=== PATIENT | male | born 1960 | race Two or more races ===

== ENCOUNTER 2021-06-24 13:53 | Outpatient (CLI) | payer OTHER | END 2021-06-24 23:59 | disposition home or self-care (01) | LOC: LAB 13:53 | PROVIDERS: ATTEND Specialist | DX: Z01.812 Encounter for preprocedural laboratory examination (principal); Z20.822 Contact with and (suspected) exposure to COVID-19 | CPT/HCPCS: C9803; U0003 ==

== ENCOUNTER 2021-06-29 05:52 | Day surgery (SDC) | payer OTHER ==
[2021-06-29] MEDS ORDERED: BUPIVACAINE 0.5 % PF 150 MG/30 ML VIAL ONE (06:34)
[2021-06-29] MEDS ORDERED: FENTANYL PF 100MCG/2ML AMPUL ONE (06:44)
== END 2021-06-29 08:40 | disposition home or self-care (01) ==
LOC: DS 05:52
PROVIDERS: ATTEND Specialist
DX: G56.01 Carpal tunnel syndrome, right upper limb (principal); I10 Essential (primary) hypertension; E11.9 Type 2 diabetes mellitus without complications; Z98.890 Other specified postprocedural states; Z79.899 Other long term (current) drug therapy
CPT/HCPCS: 64721; 82962; J0690; J2704; J3010; J3490 ×2